=== PATIENT | male | born 1980 | race Caucasian/White ===

== ENCOUNTER 2021-03-08 18:49 | Inpatient (IN) ==
[2021-03-08] MEDS ORDERED: BENTYL PO ONE (19:20)
[2021-03-08] MEDS ORDERED: LACTATED RINGERS 1,000 ML IV STA (19:20)
[2021-03-08] MEDS ORDERED: ZOFRAN 4 MG/2 ML IVP ONE (19:21)
[2021-03-08] MEDS ORDERED: MORPHINE 4 MG/ML SYRINGE IVP ONE (19:21)
--- NOTE | 2021-03-08 19:29 | ED.PDOC ---
General ED Provider: Dr. PETAR NOLAND Chief Complaint: Abdominal Pain Stated Complaint: Lower abdominal pain since last two days worse starting at 2 pm today. Describes it as cramping. waxing and Waning worst pain was 8 now 4 /10 Time Seen by Provider: 03/08/21 19:20 Mode of Arrival: Walk-In Information Source: Patient Primary Care Provider: KEITH ALANIZ Nursing and Triage Documentation Reviewed and Agree: Yes Does patient meet sepsis criteria?: No If yes, has appropriate treatment been initiated?: No System Inflammatory Response Syndrome: Not Applicable Sepsis Protocol: For patient's 13 years and over: Temp is 96.8 and below OR 101 and greater Pulse >90 BPM Resp >20/minute Acutely Altered Mental Status Are patient's symptoms suggestive of a new infection, such as: -Pneumonia -Skin, Soft Tissue -Endocarditis -UTI -Bone, Joint Infection -Implantable Device -Acute Abdominal Infection -Wound Infection -Meningitis -Blood Stream Catheter Infection -Unknown GI Complaint Exam Abdominal Pain Complaint/Exam Onset: Gradual Duration: 2 datys worse in the last 5 hours Symptoms Are: Still present Timing: Intermittent Initial Severity: Severe Current Severity: Moderate Location of Pain: LUQ and LLQ Radiates To: Denies Chest, Back, Flank, LLQ, RLQ and Inguinal Character: Reports Dull and Cramping Alleviating: Reports None Associated Signs and Symptoms: Reports Decreased appetite, Nausea and Diarrhea; Denies Diaphoresis, Fever, Cough, Chest pain, Dizziness, Back pain, Constipation, Blood in stool, Dysuria, Urinary frequency, Decreased urine output, Discharge, Vomiting and Decreased activity AAA Risk Factors: Reports None Cardiac Risk Factors: Reports None Testicular Torsion Risk Factors: Reports None Surgical Obstruction Risk Factors: Reports None Abdominal Findings: Present Peritoneal signs; Absent McBurney's Point tender and CVA Tenderness Differential Diagnoses: Appendicitis, Bowel Obstruction, Gastroenteritis, Pancreatitis, Irritable Bowel Syndrome, Pneumonia and Other (DKA) Review of Systems Review Of Systems Constitutional: Reports No symptoms Eyes: Reports No symptoms Ears, Nose, Mouth, Throat: Reports No symptoms Respiratory: Reports No symptoms GI: Reports Abdominal pain, Diarrhea, Nausea and Poor appetite : Reports No symptoms Musculoskeletal: Reports No symptoms Skin: Reports No symptoms Neurological: Reports Anxiety Endocrine: Reports No symptoms Hematologic/Lymphatic: Reports No symptoms All Other Systems: Reviewed and Negative Physical Exam Physical Exam Appearance: Reports Well-appearing and Well-nourished Ill-appearing: None Pain Distress: Moderate Eyes: Reports ELGIN and EOMI ENT: Reports Nose normal and Oropharynx normal Neck: Nonsupple Respiratory: Reports Airway patent, Breath sounds clear and Breath sounds equal Cardiovascular: Reports RRR, Pulses normal and No rub GI/: Reports Soft and Tender Musculoskeletal: Reports Normal strength Skin: Reports Warm and Dry Neurological: Reports Motor intact, Alert and Oriented Psychiatric: Reports Anxious Interpretation Radiology Interpretation Radiology Interpretation By: Radiologist Radiology Results: Positive Exam Interpreted: CT Scan (IMPRESSION: 1. Inflammatory stranding / edema and free fluid surrounding the pancreas. The appearance is suggestive of acute pancreatitis. 2. No organized or drainable fluid collection. 3. Mucosal thickening and edema at the level of the duodenum. Duodenitis not excluded.) Physician Notification Case Discussed Physician Notified: Dr Alaniz Time of Notification: 22:32 Critical Care Note Critical Care Note Total Critical Care Time (mins): 30 Course Course Hematology/Chemistry: 03/08/21 19:32 03/08/21 19:32 Orders, Labs, Meds: Lab Review 03/08/21 03/08/21 03/08/21 19:32 19:32 19:32 WBC 8.68 RBC 4.77 Hgb 15.5 Hct 43.0 MCV 90.1 MCH 32.5 H MCHC 36.0 H RDW Coeff of Lg 11.7 Plt Count 185 Immature Gran % (Auto) 0.5 Neut % (Auto) 87.8 H Lymph % (Auto) 6.0 L [place] % (Auto) 5.5 Eos % (Auto) 0.0 Baso % (Auto) 0.2 Neut # (Auto) 7.6 H Lymph # (Auto) 0.5 L [place] # (Auto) 0.5 Eos # (Auto) 0.0 Baso # (Auto) 0.0 Immature Gran # (Auto) 0.0 Puncture Site Base Excess O2 Saturation ABG pH ABG pCO2 ABG pO2 ABG HCO3 ABG Total CO2 Antonio Test Hemoglobin Oxyhemoglobin Carboxyhemoglobin Total Hemoglobin FiO2 % Sodium 131.7 L Potassium 4.75 Chloride 89.6 L Carbon Dioxide 21.2 L Anion Gap 25.65 BUN 16.7 Creatinine 0.98 Estimated GFR (MDRD) 86.00 BUN/Creatinine Ratio 17.04 Glucose 293.8 H Calcium 9.61 Magnesium 1.63 Total Bilirubin 1.36 H AST 125.8 H ALT 143.6 H Alkaline Phosphatase 73.6 Total Protein 8.02 Albumin 5.02 H Globulin 3.00 Albumin/Globulin Ratio 1.67 Amylase 491.0 H* Lipase 5345.9 H Adenovirus (PCR) B. pertussis DNA (PCR) B.parapertussis DNA PCR C. pneumoniae DNA (PCR) Coronavirus OC43 (PCR) Coronavirus HKU1 (PCR) Coronavirus 229E (PCR) Coronavirus NL63 (PCR) Human Metapneumovir PCR Influenza Type A (PCR) Influenza B (RT-PCR) M. pneumoniae (PCR) Parainfluenza 1 (PCR) Parainfluenza 2 (PCR) Parainfluenza 3 (PCR) Parainfluenza 4 (PCR) RSV (PCR) Entero/Rhino (PCR) SARS-CoV-2 (PCR) 03/08/21 03/08/21 21:14 22:13 WBC RBC Hgb Hct MCV MCH MCHC RDW Coeff of Lg Plt Count Immature Gran % (Auto) Neut % (Auto) Lymph % (Auto) [place] % (Auto) Eos % (Auto) Baso % (Auto) Neut # (Auto) Lymph # (Auto) [place] # (Auto) Eos # (Auto) Baso # (Auto) Immature Gran # (Auto) Puncture Site Rb Base Excess -9.1 L O2 Saturation 94.0 ABG pH 7.32 L ABG pCO2 33.0 L ABG pO2 77.0 L ABG HCO3 17.0 L ABG Total CO2 18.0 L Antonio Test + Hemoglobin 1.0 Oxyhemoglobin 94.6 L Carboxyhemoglobin 3.0 H Total Hemoglobin 15.1 FiO2 % 21.0 Sodium Potassium Chloride Carbon Dioxide Anion Gap BUN Creatinine Estimated GFR (MDRD) BUN/Creatinine Ratio Glucose Calcium Magnesium Total Bilirubin AST ALT Alkaline Phosphatase Total Protein Albumin Globulin Albumin/Globulin Ratio Amylase Lipase Adenovirus (PCR) Not detected B. pertussis DNA (PCR) Not detected B.parapertussis DNA PCR Not detected C. pneumoniae DNA (PCR) Not detected Coronavirus OC43 (PCR) Not detected Coronavirus HKU1 (PCR) Not detected Coronavirus 229E (PCR) Not detected Coronavirus NL63 (PCR) Not detected Human Metapneumovir PCR Not detected Influenza Type A (PCR) Not detected Influenza B (RT-PCR) Not detected M. pneumoniae (PCR) Not detected Parainfluenza 1 (PCR) Not detected Parainfluenza 2 (PCR) Not detected Parainfluenza 3 (PCR) Not detected Parainfluenza 4 (PCR) Not detected RSV (PCR) Not detected Entero/Rhino (PCR) Not detected SARS-CoV-2 (PCR) Not detected Orders Category Date Time Status ABG DRAW REQUEST Stat CARDIO 03/08/21 21:48 Ordered NPO REMINDER: IMAGING ONCE CARE 03/08/21 19:22 Active ED IV/MEDIPORT/POWERPORT .ONCE EMERGENCY 03/08/21 19:20 Active ABG COOX Stat LAB 03/08/21 21:48 Ordered AMYLASE Stat LAB 03/08/21 19:32 Completed CBC W/ AUTO DIFF Stat LAB 03/08/21 19:32 Completed COMPREHENSIVE METABOLIC PANEL Stat LAB 03/08/21 19:32 Completed LIPASE Stat LAB 03/08/21 19:32 Completed MAGNESIUM Stat LAB 03/08/21 19:32 Completed RESPIRATORY PANEL 2.1 (PCR) Stat LAB 03/08/21 21:14 Received URINALYSIS C & S IF INDICATED Stat LAB 03/08/21 19:21 Uncollected 0.9 % Sodium Chloride [Saline Flush] MEDS 03/08/21 19:20 Active 1 syr IVF PRN PRN Dicyclomine HCl [Bentyl] MEDS 03/08/21 19:20 Discontinued 20 mg PO ONCE ONE Morphine Sulfate [Morphine 4 mg/ml Syringe] MEDS 03/08/21 19:21 Discontinued 4 mg IVP ONCE ONE Ondansetron HCl/Pf [Zofran 4 mg/2 ml] MEDS 03/08/21 19:21 Discontinued 4 mg IVP ONCE ONE Ringers Lactated Solution [Lactated Ringers] 1,000 ml MEDS 03/08/21 19:20 Discontinued IV BOLUS Sodium Chloride 0.9% [Sodium Chloride] 1,000 ml MEDS 03/08/21 21:[address] ABDOMEN/PELVIS W/WO CONTRAS Stat RADS 03/08/21 19:20 Completed Medications Generic Name Dose Route Start Last Admin Trade Name Freq PRN Reason Stop Dose Admin Sodium Chloride 1 syr 03/08/21 19:20 0.9% Sodium Chloride 10 Ml Disp.Syrin IVF PRN PRN To flush IV Discontinued Medications Generic Name Dose Route Start Last Admin Trade Name Freq PRN Reason Stop Dose Admin Dicyclomine HCl 20 mg 03/08/21 19:20 03/08/21 19:36 Dicyclomine Hcl 10 Mg Capsule PO 03/08/21 19:21 20 mg ONCE ONE Administration Lactated Ringer's 1,000 mls @ 1,000 mls/hr 03/08/21 19:20 03/08/21 19:48 Lactated Ringers IV 03/08/21 20:19 1,000 mls/hr BOLUS STA Administration Sodium Chloride 1,000 mls @ 1,000 mls/hr 03/08/21 21:10 03/08/21 21:19 Sodium Chloride IV 03/08/21 22:09 1,000 mls/hr BOLUS STA Administration Morphine Sulfate 4 mg 03/08/21 19:21 03/08/21 19:36 Morphine Sulfate 4 Mg/Ml Syringe IVP 03/08/21 19:22 4 mg ONCE ONE Administration Ondansetron HCl 4 mg 03/08/21 19:21 03/08/21 19:36 Ondansetron Hcl/Pf 4 Mg/2 Ml Sdv IVP 03/08/21 19:22 4 mg ONCE ONE Administration Vital Signs: Temp Pulse Resp BP Pulse Ox 03/08/21 18:49 97.3 F L 90 18 150/92 H 98 Discharge Plan Discharge Patient Disposition: ADMITTED INPATIENT Discharge Problem: Abdominal pain Acute pancreatitis Qualifiers: Pancreatitis type: alcohol induced Acute pancreatitis complication: no infection or necrosis Qualified Code(s): K85.20 - Alcohol induced acute pancreatitis without necrosis or infection ED Provider: PETAR NOLAND Condition: Fair Physician Progress Note: []
[2021-03-08 19:36] LABS: BASOPHILS % (AUTO) 0.2 % (0.0-3.0); HEMOGLOBIN 15.5 g/dl (14.0-18.0); IMMATURE GRANULOCYTE % (AUTO) 0.5 % (0.0-5.0); LYMPHOCYTES # (AUTO) 0.5 K/uL (0.60-3.4); MEAN CORPUSCULAR HEMOGLOBIN 32.5 pg (27.0-31.0); MEAN CORPUSCULAR VOLUME 90.1 fl (80.0-94.0); MONOCYTES # (AUTO) 0.5 K/uL (0.4-2.0); MONOCYTES % (AUTO) 5.5 (0-10); NEUTROPHILS # (AUTO) 7.6 K/ul (2.0-6.9); NEUTROPHILS % (AUTO) 87.8 % (42.2-75.2); PLATELET COUNT 185 10^3/uL (140-440); RDW COEFFICIENT OF VARIATION 11.7 % (11.6-14.8); RED BLOOD COUNT 4.77 10^6/ul (4.70-6.10); WHITE BLOOD COUNT 8.68 K/ul (4.2-10.2)
[2021-03-08 19:49] LABS: ALANINE AMINOTRANSFERASE 143.6 U/L (0-50); ALBUMIN 5.02 g/dL (3.5-5.0); ALKALINE PHOSPHATASE 73.6 U/L (38-126); ASPARTATE AMINO TRANSFERASE 125.8 U/L (17-59); BILIRUBIN,TOTAL 1.36 mg/dL (0.2-1.3); BLOOD UREA NITROGEN 16.7 mg/dL (9-20); CALCIUM 9.61 mg/dL (8.4-10.2); CARBON DIOXIDE 21.2 mmol/L (22-30.0); CHLORIDE 89.6 mmol/L (98-107); CREATININE 0.98 mg/dL (0.60-1.10); GLUCOSE 293.8 mg/dL (74-106); POTASSIUM 4.75 mmol/L (3.5-5.1); SODIUM 131.7 mmol/L (134.5-145); TOTAL PROTEIN 8.02 g/dL (6.3-8.2)
[2021-03-08 20:07] LABS: LIPASE 5345.9 U/L (23-300)
[2021-03-08] MEDS ORDERED: SODIUM CHLORIDE 1,000 ML IV STA (21:10)
--- NOTE | 2021-03-08 21:24 | CT ---
EXAM: CT abdomen pelvis without and with intravenous contrast 03/13/2021. Sagittal and coronal refor matted images obtained HISTORY: Lower abdominal pain COMPARISON: None. FINDINGS: Diffuse hepatic steatosis. The liver, gallbladder, adrenal glands and kidneys show no acu te abnormality. There is no hydronephrosis. The spleen shows no acute abnormality. There is peripancreatic stranding / edema and free fluid. The appearance is most compatible with acu te pancreatitis. There is adjacent mucosal thickening and edema at the level of the duodenum. Duode nitis not excluded. There is no evidence of pancreatic devitalization. The splenic vein is patent. No organized or drainable fluid collection. No bowel obstruction. The appendix is not identified. No specific secondary signs of appendicitis. IMPRESSION: 1. Inflammatory stranding / edema and free fluid surrounding the pancreas. The appearance is sugges tive of acute pancreatitis. 2. No organized or drainable fluid collection. 3. Mucosal thickening and edema at the level of the duodenum. Duodenitis not excluded. All CT scans are performed using dose optimization techniques as appropriate to the performed exam an d include at least one of the following: Automated exposure control, adjustment of the mA and/or kV according t o size, and the use of iterative reconstruction technique.
[2021-03-08 21:28] LABS: BORDETELLA PARAPERTUSSIS (PCR) NOT DETECTED (NOT DETECT); BORDETELLA PERTUSSIS (PCR) NOT DETECTED (NOT DETECT); CHLAMYDIA PNEUMONIAE (PCR) NOT DETECTED (NOT DETECT); CORONAVIRUS 229E (PCR) NOT DETECTED (NOT DETECT); CORONAVIRUS HKU1 (PCR) NOT DETECTED (NOT DETECT); CORONAVIRUS NL63 (PCR) NOT DETECTED (NOT DETECT); CORONAVIRUS OC43 (PCR) NOT DETECTED (NOT DETECT); HUMAN METAPNEUMOVIRUS (PCR) NOT DETECTED (NOT DETECT); HUMAN RHINOVIRUS/ENTEROV (PCR) NOT DETECTED (NOT DETECT); INFLUENZA B (PCR) NOT DETECTED (NOT DETECT); MYCOPLASMA PNEUMONIAE (PCR) NOT DETECTED (NOT DETECT); PARAINFLUENZA VIRUS 1 (PCR) NOT DETECTED (NOT DETECT); PARAINFLUENZA VIRUS 2 (PCR) NOT DETECTED (NOT DETECT); PARAINFLUENZA VIRUS 3 (PCR) NOT DETECTED (NOT DETECT); PARAINFLUENZA VIRUS 4 (PCR) NOT DETECTED (NOT DETECT); RESPIRATORY SYNCYTIAL V (PCR) NOT DETECTED (NOT DETECT); SARS_COV_2 (PCR) NOT DETECTED (NOT DETECT)
[2021-03-08 22:16] LABS: ADENOVIRUS (PCR) NOT DETECTED (NOT DETECT)
[2021-03-08 22:18] LABS: ABG O2 HGB 94.6 % (95-100); ABG PH 7.32 (7.35-7.45); BEecf -9.1 (-2.0-3.0); tHb 15.1 g/dl (11.7-17.4)
[2021-03-08] MEDS ORDERED: ZOFRAN 4 MG/2 ML IVP PRN (22:33)
[2021-03-08] MEDS ORDERED: DILAUDID 1 MG/ML SYRINGE IVP PRN (22:33)
[2021-03-08] MEDS ORDERED: HUMULIN R SUBCUT PRN (22:38)
[2021-03-08 23:18] VITALS: BMI 19.3
[2021-03-08] MEDS ORDERED: POTASSIUM CHLORIDE 10 MEQ VIAL- ADDITIVE ONLY IV ONE (23:48)
[2021-03-08] MEDS: POTASSIUM CHLORIDE 10 MEQ VIAL- ADDITIVE ONLY 10 MEQ in SODIUM CHLORIDE 1,000 ML IV SCH (23:57)
[2021-03-09] MEDS: PEPCID IVP SCH ×3 (00:04→21:00)
[2021-03-09 00:12] LABS: BILIRUBIN,URINE Negative (NEGATIVE); CLARITY,URINE Clear (CLEAR); COLOR,URINE Yellow (YELLOW); GLUCOSE, URINE (UA) 2+ (NEGATIVE); KETONES,URINE 3+ (NEGATIVE); LEUKOCYTE ESTERASE ,URINE Negative (NEGATIVE); NITRITE,URINE Negative (NEGATIVE); PH,URINE 5.5 (5-9); PROTEIN,URINE Negative (NEGATIVE); URINE, BLOOD Negative (NEGATIVE); UROBILINOGEN,URINE 0.2 (0.2)
[2021-03-09 00:15] LABS: SQUAMOUS EPITHELIAL CELL,UR 0-2 (0-5); URINE RBC, MICROSCOPIC 0-2 (0-2)
[2021-03-09 05:28] LABS: BASOPHILS % (AUTO) 0.4 % (0.0-3.0); EOSINOPHILS % (AUTO) 0.1 % (0.0-7.0); HEMATOCRIT 38.2 % (42.0-52.0); HEMOGLOBIN 13.4 g/dl (14.0-18.0); IMMATURE GRANULOCYTE % (AUTO) 0.4 % (0.0-5.0); LYMPHOCYTES # (AUTO) 0.9 K/uL (0.60-3.4); LYMPHOCYTES % (AUTO) 11.8 (10.0-50.0); MEAN CORPUSCULAR HGB CONC 35.1 (31.8-35.4); MEAN CORPUSCULAR VOLUME 91.2 fl (80.0-94.0); MONOCYTES # (AUTO) 0.8 K/uL (0.4-2.0); NEUTROPHILS # (AUTO) 5.8 K/ul (2.0-6.9); NEUTROPHILS % (AUTO) 76.3 % (42.2-75.2); PLATELET COUNT 181 10^3/uL (140-440); RDW COEFFICIENT OF VARIATION 11.6 % (11.6-14.8); RED BLOOD COUNT 4.19 10^6/ul (4.70-6.10); WHITE BLOOD COUNT 7.65 K/ul (4.2-10.2)
[2021-03-09 05:43] LABS: ALANINE AMINOTRANSFERASE 102.7 U/L (0-50); ALBUMIN 3.91 g/dL (3.5-5.0); ALKALINE PHOSPHATASE 54.4 U/L (38-126); BILIRUBIN,TOTAL 1.03 mg/dL (0.2-1.3); BLOOD UREA NITROGEN 15.2 mg/dL (9-20); CALCIUM 8.16 mg/dL (8.4-10.2); CARBON DIOXIDE 17.9 mmol/L (22-30.0); CHLORIDE 99.6 mmol/L (98-107); CREATININE 0.88 mg/dL (0.60-1.10); GLUCOSE 263.8 mg/dL (74-106); POTASSIUM 4.51 mmol/L (3.5-5.1); SODIUM 132.9 mmol/L (134.5-145); TOTAL PROTEIN 6.2 g/dL (6.3-8.2)
[2021-03-09 06:08] LABS: AMYLASE 529.5 U/L (30-110); LIPASE 4810.1 U/L (23-300)
[2021-03-09] MEDS ORDERED: SYNTHROID PO SCH (06:30)
[2021-03-09] MEDS: LANTUS SUBCUT SCH (06:46)
[2021-03-09] MEDS ORDERED: POTASSIUM CHLORIDE 10 MEQ VIAL- ADDITIVE ONLY IV ONE ×2 (06:47→20:31)
[2021-03-09] MEDS: POTASSIUM CHLORIDE 10 MEQ VIAL- ADDITIVE ONLY 10 MEQ in SODIUM CHLORIDE 1,000 ML IV SCH ×4 (06:50→20:54)
[2021-03-09] MEDS: ACCUPRIL PO SCH (08:30)
[2021-03-09] MEDS: LOVENOX SUBCUT SCH ×2 (08:30→09:15)
[2021-03-09] MEDS ORDERED: LIPITOR PO SCH (09:00)
--- NOTE | 2021-03-09 10:13 | US ---
EXAM: Limited abdominal sonogram. HISTORY: Acute pancreatitis, evaluate for stones TECHNIQUE: Real time with duplex. COMPARISON: None FINDINGS: The liver measures up to 10.2 cm in length. The liver demonstrates diffuse increased echogenicity. There is no intrahepatic biliary dilation. The portal vein is patent and antegrade. Mild perihepati c ascites. Visualized pancreas is unremarkable. The distal body and tail are not well visualized. The gallbladder wall measures 0.16 cm. No evidense of cholelithiasis, gallbladder wall thickening, or pericholecystic fluid. The common bile duct measures 0.3 cm. The right kidney measures 10.4 x 3.9 x 3.5 cm with normal echotexture. There is no hydronephrosis or renal calculus. Aorta/IVC not well visualized. IMPRESSION: 1. No acute sonographic abnormality. 2. Visualized pancreas is unremarkable. 3. Mild right upper quadrant size. Patchy ascites.
[2021-03-09] MEDS: HUMALOG SUBCUT PRN ×2 (10:33→14:44)
[2021-03-09] MEDS: LIPITOR PO SCH (20:10)
[2021-03-10] MEDS ORDERED: GLUCOSE CHEW TAB PO ONE (01:55)
[2021-03-10] MEDS ORDERED: GLUTOSE 15 PO STA (02:12)
[2021-03-10] MEDS ORDERED: DEXTROSE 50%-WATER ABBOJECT IVP STA (02:57)
[2021-03-10] MEDS ORDERED: DEXTROSE 50%-WATER ABBOJECT ONE (03:07)
[2021-03-10 04:59] LABS: BASOPHILS % (AUTO) 0.4 % (0.0-3.0); EOSINOPHILS # (AUTO) 0.1 K/ul (0.0-0.7); EOSINOPHILS % (AUTO) 1.1 % (0.0-7.0); HEMATOCRIT 33.5 % (42.0-52.0); HEMOGLOBIN 11.9 g/dl (14.0-18.0); IMMATURE GRANULOCYTE % (AUTO) 0.2 % (0.0-5.0); LYMPHOCYTES # (AUTO) 0.8 K/uL (0.60-3.4); LYMPHOCYTES % (AUTO) 17.9 (10.0-50.0); MEAN CORPUSCULAR HEMOGLOBIN 32.5 pg (27.0-31.0); MEAN CORPUSCULAR HGB CONC 35.5 (31.8-35.4); MEAN CORPUSCULAR VOLUME 91.5 fl (80.0-94.0); MONOCYTES # (AUTO) 0.5 K/uL (0.4-2.0); MONOCYTES % (AUTO) 10.2 (0-10); NEUTROPHILS # (AUTO) 3.2 K/ul (2.0-6.9); NEUTROPHILS % (AUTO) 70.2 % (42.2-75.2); PLATELET COUNT 152 10^3/uL (140-440); RDW COEFFICIENT OF VARIATION 11.6 % (11.6-14.8); RED BLOOD COUNT 3.66 10^6/ul (4.70-6.10); WHITE BLOOD COUNT 4.52 K/ul (4.2-10.2)
[2021-03-10 05:03] LABS: AMYLASE 321.1 U/L (30-110); LIPASE 1740.9 U/L (23-300)
[2021-03-10 05:14] LABS: ALANINE AMINOTRANSFERASE 79.2 U/L (0-50); ALBUMIN 3.57 g/dL (3.5-5.0); ALKALINE PHOSPHATASE 48.2 U/L (38-126); ASPARTATE AMINO TRANSFERASE 58.3 U/L (17-59); BILIRUBIN,TOTAL 0.82 mg/dL (0.2-1.3); BLOOD UREA NITROGEN 9.6 mg/dL (9-20); CALCIUM 7.89 mg/dL (8.4-10.2); CARBON DIOXIDE 25.8 mmol/L (22-30.0); CHLORIDE 104.2 mmol/L (98-107); CREATININE 0.73 mg/dL (0.60-1.10); GLUCOSE 173.3 mg/dL (74-106); POTASSIUM 3.46 mmol/L (3.5-5.1); TOTAL PROTEIN 5.97 g/dL (6.3-8.2)
[2021-03-10] MEDS: POTASSIUM CHLORIDE 10 MEQ VIAL- ADDITIVE ONLY 10 MEQ in SODIUM CHLORIDE 1,000 ML IV SCH ×2 (05:32→10:57)
[2021-03-10] MEDS: SYNTHROID PO SCH (05:48)
[2021-03-10] MEDS ORDERED: HUMULIN R SUBCUT PRN (07:57)
[2021-03-10] MEDS: HUMALOG SUBCUT PRN ×3 (09:49→17:57)
[2021-03-10] MEDS: ACCUPRIL PO SCH (09:49)
[2021-03-10] MEDS: LOVENOX SUBCUT SCH (09:50)
[2021-03-10] MEDS: PEPCID IVP SCH ×2 (09:50→22:15)
[2021-03-10] MEDS: LANTUS SUBCUT SCH (10:35)
[2021-03-10] MEDS: LIPITOR PO SCH (20:10)
[2021-03-10] MEDS ORDERED: LANTUS SUBCUT SCH (21:00)
[2021-03-11 05:12] LABS: BASOPHILS % (AUTO) 0.4 % (0.0-3.0); EOSINOPHILS # (AUTO) 0.1 K/ul (0.0-0.7); EOSINOPHILS % (AUTO) 2.2 % (0.0-7.0); HEMATOCRIT 33.7 % (42.0-52.0); HEMOGLOBIN 12.2 g/dl (14.0-18.0); IMMATURE GRANULOCYTE % (AUTO) 0.2 % (0.0-5.0); LYMPHOCYTES # (AUTO) 1.3 K/uL (0.60-3.4); LYMPHOCYTES % (AUTO) 27.1 (10.0-50.0); MEAN CORPUSCULAR HEMOGLOBIN 32.4 pg (27.0-31.0); MEAN CORPUSCULAR HGB CONC 36.2 (31.8-35.4); MEAN CORPUSCULAR VOLUME 89.6 fl (80.0-94.0); MONOCYTES # (AUTO) 0.6 K/uL (0.4-2.0); MONOCYTES % (AUTO) 12.8 (0-10); NEUTROPHILS # (AUTO) 2.6 K/ul (2.0-6.9); NEUTROPHILS % (AUTO) 57.3 % (42.2-75.2); PLATELET COUNT 150 10^3/uL (140-440); RDW COEFFICIENT OF VARIATION 11.6 % (11.6-14.8); RED BLOOD COUNT 3.76 10^6/ul (4.70-6.10); WHITE BLOOD COUNT 4.61 K/ul (4.2-10.2)
[2021-03-11 05:24] LABS: AMYLASE 175.6 U/L (30-110); LIPASE 1891.8 U/L (23-300)
[2021-03-11 05:30] LABS: ALANINE AMINOTRANSFERASE 85.3 U/L (0-50); ALBUMIN 3.61 g/dL (3.5-5.0); ALKALINE PHOSPHATASE 53.3 U/L (38-126); ASPARTATE AMINO TRANSFERASE 78.1 U/L (17-59); BILIRUBIN,TOTAL 0.56 mg/dL (0.2-1.3); BLOOD UREA NITROGEN 8.7 mg/dL (9-20); CALCIUM 8.54 mg/dL (8.4-10.2); CARBON DIOXIDE 29.4 mmol/L (22-30.0); CHLORIDE 106.2 mmol/L (98-107); CREATININE 0.79 mg/dL (0.60-1.10); GLUCOSE 123.2 mg/dL (74-106); POTASSIUM 3.73 mmol/L (3.5-5.1); SODIUM 139.9 mmol/L (134.5-145); TOTAL PROTEIN 6.15 g/dL (6.3-8.2)
[2021-03-11] MEDS: SYNTHROID PO SCH (05:31)
[2021-03-11] MEDS: POTASSIUM CHLORIDE 10 MEQ VIAL- ADDITIVE ONLY 10 MEQ in SODIUM CHLORIDE 1,000 ML IV SCH (05:34)
[2021-03-11 05:40] VITALS: BP 132/90; TEMP 97.7
[2021-03-11] MEDS: ACCUPRIL PO SCH (08:00)
--- NOTE | 2021-05-22 09:42 | HP ---
CHIEF COMPLAINT: This is a 40-year-old gentleman with Type 1 diabetes on subcu insulin followed by [facility] presented to the Emergency Department with two days of cramping abdominal pain, severe at times. In the Emergency Department he was evaluated and found to have elevated amylase and lipase markers as well as CT scan suspicious for acute pancreatitis. He admitted to drinking heavily prior to admission. He was admitted to my services for IV fluids, NPO status and pain control. PAST MEDICAL HISTORY: MEDICATIONS: Subcu insulin. Hydrochlorothiazide Atorvastatin Synthroid Quinapril ALLERGIES: NKDA PAST MEDICAL HISTORY: History of hyperlipidemia History of hypertension History of Type 1 diabetes controlled with subcu insulin Hypothyroidism PAST SURGICAL HISTORY: None noted SOCIAL HISTORY: Denies any tobacco or ilicit drug use. FAMILY HISTORY: Reviewed and thought not to be pertinent to discussion. REVIEW OF SYSTEMS: No headaches, visual changes, tinnitus, chest pain, shortness of breath, hemoptysis, blood in the stool, urinary symptoms or seizures. PHYSICAL EXAMINATION: V/S: Temperature 96, respiratory 18, blood pressure 150/92, pulse 90. HEENT: Pupils are round. NECK: Supple. CHEST: Clear. CARDIOVASCULAR: Regular rate and rhythm. ABDOMEN: Soft, nontender. EXTREMITIES: Distal extremities without cyanosis or edema. ASSESSMENT: 1. Acute pancreatititis. PLAN: 1. NPO 2. IV fluids for pain control 3. Monitor blood sugars 4. Will discuss with [facility], please see orders. MTDD
--- NOTE | 2021-05-22 09:46 | DS ---
PRINCIPAL DIAGNOSIS: 1. ACUTE PANCREATITIS MOST LIKELY SECONDARY TO ALCOHOL. DISCUSSION: This is a 40-year-old gentleman with Type 1 diabetes on subcu insulin followed by [facility] presented to the Emergency Department with two days of cramping abdominal pain, severe at times. In the Emergency Department he was evaluated and found to have elevated amylase and lipase markers as well as CT scan suspicious for acute pancreatitis. He admitted to drinking heavily prior to admission. He was admitted to my services for IV fluids, NPO status and pain control. CLINICAL COURSE: The patient was admitted to my services, given IV fluids for pain control. I discussed the case with his roustabout head in [place] and she gave me parameters. His blood sugars were monitored carefully during hospitalization. He did well. His diet was slowly advanced and he tolerated this without abdominal pain. At time of discharge he was tolerating diet without nausea, vomiting or abdominal pain. At this point we have discharged him with instructions to come in in one week for labs. He is going to followup with [facility], please see orders. CHARBEL
== END 2021-03-11 08:06 | disposition home or self-care (01) | DRG 392 ==
LOC: ED 18:49 → MEDSURG A 22:33
PROVIDERS: ADMIT Family Medicine; ATTEND Family Medicine